=== PATIENT | male | born 1985 | race American Indian/Alaskan Native ===

== ENCOUNTER 2018-07-20 18:13 | Emergency (ER) | payer SELFPAY ==
--- NOTE | 2018-07-20 18:17 | Emergency Department Report ---
Stated Complaint: NECK PAIN Time Seen by Provider: 07/20/18 18:17 - HPI History of Present Illness: SIMPLE ABSCESS ON NECK MSE COMPLETED MSE screening note: Focused history and physical exam performed. Due to findings the following was ordered: ED Disposition for MSE Condition: Stable
[2018-07-20] MEDS ORDERED: XYLOCAINE 1% 20 mL INFILTRATI ONE (18:18)
[2018-07-20] MEDS ORDERED: IBUPROFEN PO ONE ×2 (18:19→20:16)
[2018-07-20 20:36] LABS: Basophils % (Auto) 0.3 % (0.0-1.8); Eosinophils # (Auto) 0.3 K/mm3 (0.0-0.4); Eosinophils % (Auto) 2.8 % (0.0-4.3); Hematocrit 45.5 % (35.5-45.6); Hemoglobin 15.1 gm/dl (11.8-15.2); Lymphocytes # (Auto) 2.8 K/mm3 (1.2-5.4); Lymphocytes % (Auto) 26.2 % (13.4-35.0); Mean Corpuscular HGB Conc 33 % (32-34); Mean Corpuscular Volume 84 fl (84-94); Monocytes # (Auto) 0.8 K/mm3 (0.0-0.8); Monocytes % (Auto) 7.2 % (0.0-7.3); Platelet Count 191 K/mm3 (140-440); Red Blood Count 5.41 M/mm3 (3.65-5.03); Red Cell Distribution Width 15.4 % (13.2-15.2)
[2018-07-20 20:50] LABS: Alanine Aminotransferase 9 units/L (7-56); Albumin 4.1 g/dL (3.9-5); BUN/Creatinine Ratio 13; Blood Urea Nitrogen 15 mg/dL (9-20); Calcium 9.6 mg/dL (8.4-10.2); Hemolysis Index 7
[2018-07-20 21:28] VITALS: BP 131/86
--- NOTE | 2018-07-20 21:47 | Emergency Department Report ---
- General Chief complaint: Skin/Abscess/Foreign Body Stated complaint: NECK PAIN Time Seen by Provider: 07/20/18 18:17 Source: patient Mode of arrival: Ambulatory Limitations: No Limitations - History of Present Illness Initial comments: 32 year old -[place] male presents to the emergency room for complaint of abscess under left chin/jaw 2 days. Patient denies any fever or chills. Patient does report that it is painful denies any discharge or drainage from the abscess. Patient has no past medical history currently takes no medications on a daily basis has no known drug allergies. MD complaint: abscess/boil -: days(s) (3) Location: face Severity scale (0 -10): 10 (F jaw) Quality: constant Consistency: constant Improves with: none Worsens with: palpation Context: none Associated symptoms: denies other symptoms - Related Data Previous Rx's Medication Instructions Recorded Last Taken Type Cephalexin [Keflex] 500 mg PO BID #20 capsule 07/20/18 Unknown Rx Naproxen [Naprosyn] 500 mg PO BID #14 tablet 07/20/18 Unknown Rx Allergies Allergy/AdvReac Type Severity Reaction Status Date / Time No Known Allergies Allergy Verified 07/20/18 18:17 Abscess Boil HPI - HPI Chief Complaint: Skin/Abscess/Foreign Body Stated Complaint: NECK PAIN Time Seen by Provider: 07/20/18 18:17 Home Medications: Previous Rx's Medication Instructions Recorded Last Taken Type Cephalexin [Keflex] 500 mg PO BID #20 capsule 07/20/18 Unknown Rx Naproxen [Naprosyn] 500 mg PO BID #14 tablet 07/20/18 Unknown Rx Allergies/Adverse Reactions: Allergies Allergy/AdvReac Type Severity Reaction Status Date / Time No Known Allergies Allergy Verified 07/20/18 18:17 ED Review of Systems ROS: Stated complaint: NECK PAIN Other details as noted in HPI Comment: All other systems reviewed and negative Constitutional: denies: chills, fever ED Past Medical Hx - Past Medical History Previous Medical History?: No - Surgical History Past Surgical History?: No - Social History Smoking Status: Current Every Day Smoker Substance Use Type: Alcohol - Medications Home Medications: Home Medications Medication Instructions Recorded Confirmed Last Taken Type Cephalexin [Keflex] 500 mg PO BID #20 capsule 07/20/18 Unknown Rx Naproxen [Naprosyn] 500 mg PO BID #14 tablet 07/20/18 Unknown Rx ED Physical Exam - General Limitations: No Limitations ED Course Vital Signs 07/20/18 18:18 Temperature 98.2 F Pulse Rate 83 Respiratory 18 Rate Blood Pressure 131/86 O2 Sat by Pulse 97 Oximetry - I & D Left Neck Type of Procedure: Simple Blade Size: 11 I & D Procedure: betadine prep, sterile drapes applied, sterile dressing applied, gauze wick placed Progress: Patient tolerated procedure well ED Medical Decision Making - Lab Data Result diagrams: 07/20/18 20:24 07/20/18 20:24 - Radiology Data Radiology results: report reviewed Patient: ADRIENNE FISH JR MR#: [id number] : 1985 Acct:[id number] Age/Sex: 32 / M ADM Date: 07/20/18 Loc: ED Attending Dr: Ordering Physician: MARY CASTILLO Date of Service: 07/20/18 Procedure(s): CT neck w con Accession Number(s): [id number] cc: MARY CASTILLO PROCEDURE: CT neck with contrast. TECHNIQUE: Computerized axial tomography of the soft tissue neck was performed following the IV injection of iodinated nonionic contrast. CT DOSE LENGTH PRODUCT: 499.6 mGycm HISTORY: Abscess on left neck. COMPARISONS: None. TECHNICAL QUALITY: Satisfactory. FINDINGS: The nasopharynx, oropharynx and hypopharynx appear normal. The larynx appears normal. There is a large nodule in the left lobe of the thyroid. The parotid and submandibular salivary glands appear normal. The vascular structures enhance normally. There is a low-attenuation ovoid mass within the subcutaneous fat of the left side of the neck. This is located at the level of the hyoid bone. The mass has some internal septations but is predominantly low in attenuation. It measures 3.7 cm x 2.1 cm x 4.3 cm. It is consistent with a subcutaneous abscess. A necrotic neoplasm could have a similar appearance however. There are numerous small bilateral cervical lymph nodes. The bones appear intact. The mastoid air cells are clear. There are small mucous retention cysts in the left maxillary sinus. IMPRESSION: Large left-sided subcutaneous neck mass as described. Large nodule in the left lobe of the thyroid gland. This document is electronically signed by Jareth Jackson MD., July 20 2018 10:00:04 PM ET Transcribed By: MRM Dictated By: JARETH JACKSON MD Electronically Authenticated By: JARETH JACKSON MD Signed Date/Time: 07/20/182201 DD/ 24 TD/TT: 07/20/182124 Critical care attestation.: If time is entered above; I have spent that time in minutes in the direct care of this critically ill patient, excluding procedure time. ED Disposition Clinical Impression: Cutaneous abscess of neck, Thyroid nodule Disposition: DC-01 TO HOME OR SELFCARE Is pt being admited?: No Does the pt Need Aspirin: No Condition: Stable Instructions: Thyroid Nodules (ED), Abscess Incision and Drainage (ED), Abscess (ED) Additional Instructions: Complete antibiotics as prescribed. Pain medication as needed. Follow up in 2 days to have packing removed from neck. Prescriptions: Cephalexin [Keflex] 500 mg PO BID #20 capsule Naproxen [Naprosyn] 500 mg PO BID #14 tablet Referrals: DANIELLE HAYES MD [Primary Care Provider] - 3-5 Days Forms: Work/School Release Form(ED)
--- NOTE | 2018-07-20 22:02 | Cat Scan Report ---
PROCEDURE: CT neck with contrast. TECHNIQUE: Computerized axial tomography of the soft tissue neck was performed following the IV inje ction of iodinated nonionic contrast. CT DOSE LENGTH PRODUCT: 499.6 mGycm HISTORY: Abscess on left neck. COMPARISONS: None. TECHNICAL QUALITY: Satisfactory. FINDINGS: The nasopharynx, oropharynx and hypopharynx appear normal. The larynx appears normal. There is a larg e nodule in the left lobe of the thyroid. The parotid and submandibular salivary glands appear normal . The vascular structures enhance normally. There is a low-attenuation ovoid mass within the subcutan eous fat of the left side of the neck. This is located at the level of the hyoid bone. The mass has s ome internal septations but is predominantly low in attenuation. It measures 3.7 cm x 2.1 cm x 4.3 cm . It is consistent with a subcutaneous abscess. A necrotic neoplasm could have a similar appearance h owever. There are numerous small bilateral cervical lymph nodes. The bones appear intact. The mastoid air cells are clear. There are small mucous retention cysts in the left maxillary sinus. IMPRESSION: Large left-sided subcutaneous neck mass as described. Large nodule in the left lobe of t he thyroid gland. This document is electronically signed by Jareth Starkey MD., July 20 2018 10:00:04 PM ET
== END 2018-07-20 23:10 | disposition home or self-care (01) ==
LOC: ED 18:13
DX: L02.11 Cutaneous abscess of neck (principal); E04.1 Nontoxic single thyroid nodule; F17.200 Nicotine dependence, unspecified, uncomplicated
CPT/HCPCS: 10060; 36415; 70491; 80053; 85025; 99284; Q9967

== ENCOUNTER 2019-04-23 03:17 | Emergency (ER) | payer BC ==
[2019-04-23 03:24] VITALS: BP 132/85
[2019-04-23 04:44] LABS: Bilirubin,Urine NEG (Negative); Blood,Urine NEG (Negative); Color,Urine Yellow (Yellow); Mucus,Urine FEW /HPF; Protein,Urine <15 mg/dL mg/dL (Negative); Urobilinogen,Urine < 2.0 mg/dL (<2.0)
[2019-04-23 04:51] LABS: WBC,Urine > 182.0 /HPF (0.0-6.0)
[2019-04-23] MEDS ORDERED: LIDOCAINE-MPF (1%) 10 MG/1 ML VIAL 5 ML INFILTRATI ONE (06:27)
--- NOTE | 2019-04-23 07:07 | Emergency Department Report ---
ED Male HPI - General Chief complaint: Urogenital-Male Stated complaint: PAIN IN GROIN AREA Time Seen by Provider: 04/23/19 06:25 Source: patient Mode of arrival: Ambulatory Limitations: No Limitations - Related Data Previous Rx's Medication Instructions Recorded Last Taken Type Cephalexin [Keflex] 500 mg PO BID #20 capsule 07/20/18 Unknown Rx Naproxen [Naprosyn] 500 mg PO BID #14 tablet 07/20/18 Unknown Rx Azithromycin [Zithromax TAB] 1,000 mg PO QDAY #4 tablet 04/23/19 Unknown Rx Doxycycline Hyclate [Doxycycline 100 mg PO Q12HR #14 tab 04/23/19 Unknown Rx Hyclate TAB] Allergies Allergy/AdvReac Type Severity Reaction Status Date / Time No Known Allergies Allergy Verified 07/20/18 18:17 ED Review of Systems ROS: Stated complaint: PAIN IN GROIN AREA Other details as noted in HPI ED Past Medical Hx - Past Medical History Previous Medical History?: No - Surgical History Past Surgical History?: No - Social History Smoking Status: Current Every Day Smoker Substance Use Type: Alcohol, Marijuana - Medications Home Medications: Home Medications Medication Instructions Recorded Confirmed Last Taken Type Cephalexin [Keflex] 500 mg PO BID #20 capsule 07/20/18 Unknown Rx Naproxen [Naprosyn] 500 mg PO BID #14 tablet 07/20/18 Unknown Rx Azithromycin [Zithromax TAB] 1,000 mg PO QDAY #4 tablet 04/23/19 Unknown Rx Doxycycline Hyclate [Doxycycline 100 mg PO Q12HR #14 tab 04/23/19 Unknown Rx Hyclate TAB] ED Physical Exam - General Limitations: No Limitations ED Course Vital Signs 04/23/19 03:18 Temperature 97.4 F L Pulse Rate 91 H Respiratory 18 Rate Blood Pressure 132/85 [Right] O2 Sat by Pulse 98 Oximetry ED Medical Decision Making - Lab Data Laboratory Tests 04/23/19 03:25 Urine Color Yellow Urine Turbidity Slightly-cloudy Urine pH 5.0 Ur Specific [place] 1.027 Urine Protein <15 mg/dl Urine Glucose (UA) Neg Urine Ketones Tr Urine Blood Neg Urine Nitrite Neg Urine Bilirubin Neg Urine Urobilinogen < 2.0 Ur Leukocyte Esterase Mod Urine WBC (Auto) > 182.0 H Urine RBC (Auto) 14.0 Urine Mucus Few Critical care attestation.: If time is entered above; I have spent that time in minutes in the direct care of this critically ill patient, excluding procedure time. ED Disposition Clinical Impression: Concern about STD in male without diagnosis Disposition: DC-01 TO HOME OR SELFCARE Is pt being admited?: No Does the pt Need Aspirin: No Condition: Stable Instructions: Sexually Transmitted Diseases (ED) Additional Instructions: Take antibiotics as prescribed. Follow-up with health department for full STD workup consisting of HIV and herpes hepatitis and syphilis. Prescriptions: Doxycycline Hyclate [Doxycycline Hyclate TAB] 100 mg PO Q12HR #14 tab Azithromycin [Zithromax TAB] 1,000 mg PO QDAY #4 tablet Referrals: PRIMARY CARE, [Primary Care Provider] - 3-5 Days
== END 2019-04-23 07:22 | disposition home or self-care (01) ==
LOC: ED 03:17
DX: R10.30 Lower abdominal pain, unspecified (principal); F17.200 Nicotine dependence, unspecified, uncomplicated; F10.10 Alcohol abuse, uncomplicated; F12.10 Cannabis abuse, uncomplicated; Z79.899 Other long term (current) drug therapy
CPT/HCPCS: 81001; 96372; 99283; J0696

== ENCOUNTER 2020-02-24 21:08 | Emergency (ER) | payer SELFPAY ==
[2020-02-24 22:57] VITALS: BP 124/91
--- NOTE | 2020-02-24 23:48 | XRay Report ---
LEFT FOOT 3 VIEWS LEFT ANKLE 3 VIEWS INDICATION: pain and swelling. COMPARISON: No relevant prior imaging study available. FINDINGS: Left foot: No acute, displaced fracture or dislocation is seen. No soft tissue foreign bodies. There is mild dorsal soft tissue swelling in the forefoot. Left ankle: There is a minimally displaced transverse fracture through the distal fibula at the level of the ankle mortise. There are several ossific densities adjacent to the medial malleolus which may be fracture fragments/heterotopic ossification. Some of these may be acute. There is diffuse soft ti ssue swelling. IMPRESSION: 1. Minimally displaced transverse distal left fibular fracture. 2. There are several ossific/calcific densities at the medial ankle. These may be avulsion fracture f ragments of uncertain chronicity. Some of these appear well-corticated and are likely chronic. Hetero topic ossification can also have this appearance. Signer Name: Azeem Perez MD Signed: 02/24/2020 11:44 PM Workstation Name: [id number]
--- NOTE | 2020-02-25 00:03 | Emergency Department Report ---
ED Lower Extremity HPI - General Chief Complaint: Extremity Injury, Lower Stated Complaint: LEFT FOOT INJURY Time Seen by Provider: 02/24/20 23:26 Source: patient Mode of arrival: Ambulatory Limitations: No Limitations - History of Present Illness Initial Comments: The patient was evaluated in the emergency department for symptoms described in the history of present illness. He/she was evaluated in the context of the global COVID-19 pandemic, which necessitated consideration that the patient might be at risk for infection with the virus that causes COVID-19. Institutional protocols and algorithms that pertain to the evaluation of patients at risk for COVID-19 are in a state of rapid change based on information released by regulatory bodies including the CDC and federal and state organizations. These policies and algorithms were followed during the patient's care in the emergency department. Please note that these policies, procedures and recommendations changed on a rapid basis. 24-year-old -[place] male presents to the emergency room states that he was running 2 days ago and twisted his left ankle. Patient presents with s welling redness to his left foot and ankle. MD Complaint: ankle injury Injury: Ankle: Left, Foot: Left Type of Injury: inversion Place: street/outdoors Severity: severe Improves With: immobilization Worsens With: weight bearing, movement, palpation Context: running Associated Symptoms: swelling, unable to bear weight - Related Data Previous Rx's Medication Instructions Recorded Last Taken Type Cephalexin [Keflex] 500 mg PO BID #20 capsule 07/20/18 Unknown Rx Azithromycin [Zithromax TAB] 1,000 mg PO QDAY #4 tablet 04/23/19 Unknown Rx Doxycycline Hyclate [Doxycycline 100 mg PO Q12HR #14 tab 04/23/19 Unknown Rx Hyclate TAB] HYDROcodone/APAP 7.5-325 [[place] 1 each PO Q8HR PRN #15 tablet 02/25/20 Unknown Rx 7.5/325] Naproxen [Naprosyn] 500 mg PO BID #14 tablet 02/25/20 Unknown Rx cephALEXin [Keflex] 500 mg PO Q12HR 7 Days #14 cap 02/25/20 Unknown Rx Allergies Allergy/AdvReac Type Severity Reaction Status Date / Time No Known Allergies Allergy Verified 07/20/18 18:17 ED Review of Systems ROS: Stated complaint: LEFT FOOT INJURY Other details as noted in HPI Comment: All other systems reviewed and negative ED Past Medical Hx - Past Medical History Previous Medical History?: No - Surgical History Past Surgical History?: No - Social History Smoking Status: Current Every Day Smoker Substance Use Type: Marijuana - Medications Home Medications: Home Medications Medication Instructions Recorded Confirmed Last Taken Type Cephalexin [Keflex] 500 mg PO BID #20 capsule 07/20/18 Unknown Rx Azithromycin [Zithromax TAB] 1,000 mg PO QDAY #4 tablet 04/23/19 Unknown Rx Doxycycline Hyclate [Doxycycline 100 mg PO Q12HR #14 tab 04/23/19 Unknown Rx Hyclate TAB] HYDROcodone/APAP 7.5-325 [[place] 1 each PO Q8HR PRN #15 tablet 02/25/20 Unknown Rx 7.5/325] Naproxen [Naprosyn] 500 mg PO BID #14 tablet 02/25/20 Unknown Rx cephALEXin [Keflex] 500 mg PO Q12HR 7 Days #14 cap 02/25/20 Unknown Rx ED Physical Exam - General Limitations: No Limitations General appearance: alert, in no apparent distress - Head Head exam: Present: atraumatic, normocephalic - Eye Eye exam: Present: normal appearance - ENT ENT exam: Present: mucous membranes moist - Rectal Rectal exam: Present: deferred - Expanded Lower Extremity Exam Left Hip exam: Present: normal inspection Upper Leg exam: Present: normal inspection, full ROM Knee exam: Present: normal inspection, full ROM Lower Leg exam: Present: normal inspection Ankle exam: Present: tenderness, swelling, abrasion, ecchymosis, erythema Foot/Toe exam: Present: tenderness, swelling, abrasion, ecchymosis, erythema Neuro vascular tendon exam: Present: no vascular compromise - Back Exam Back exam: Present: normal inspection - Neurological Exam Neurological exam: Present: alert, oriented X3 - Psychiatric Psychiatric exam: Present: normal affect, normal mood - Skin Skin exam: Present: warm, dry, intact, normal color. Absent: rash ED Course Vital Signs 02/24/20 22:56 Temperature 98 F Pulse Rate 93 H Respiratory 18 Rate Blood Pressure 124/91 [Left] O2 Sat by Pulse 98 Oximetry ED Lower Extremity MDM - Radiology Data Radiology results: report reviewed Patient: ADRIENNE FISH JR MR#: [id number] : 1985 Acct:[id number] Age/Sex: 34 / M ADM Date: 02/24/20 Loc: ED Attending Dr: Ordering Physician: EDUARDO GORDON MD Date of Service: 02/24/20 Procedure(s): XR foot 3+V LT Accession Number(s): [id number] cc: EDUARDO GORDON MD Fluoro Time In Minutes: LEFT FOOT 3 VIEWS LEFT ANKLE 3 VIEWS INDICATION: pain and swelling. COMPARISON: No relevant prior imaging study available. FINDINGS: Left foot: No acute, displaced fracture or dislocation is seen. No soft tissue foreign bodies. There is mild dorsal soft tissue swelling in the forefoot. Left ankle: There is a minimally displaced transverse fracture through the distal fibula at the level of the ankle mortise. There are several ossific densities adjacent to the medial malleolus which may be fracture fragments/heterotopic ossification. Some of these may be acute. There is diffuse soft tissue swelling. IMPRESSION: 1. Minimally displaced transverse distal left fibular fracture. 2. There are several ossific/calcific densities at the medial ankle. These may be avulsion fracture fragments of uncertain chronicity. Some of these appear well-corticated and are likely chronic. Heterotopic ossification can also have this appearance. Signer Name: Azeem Perez MD Signed: 02/24/2020 11:44 PM Workstation Name: [id number] Transcribed By: SW Dictated By: Azeem Perez MD Electronically Authenticated By: Azeem Perez MD Signed Date/Time: 02/24/20 2344 - Medical Decision Making 24-year-old -[place] male presents to the emergency room states that he was running 2 days ago and twisted his left ankle. Patient presents with swelling redness to his left foot and ankle. X-ray shows a left distal fibular fracture. [place] 7.5 mg given for pain management while in ER. Patient be discharged home on naproxen, [place] and Keflex as patient has a small open abrasion to his ankle and foot. Critical care attestation.: If time is entered above; I have spent that time in minutes in the direct care of this critically ill patient, excluding procedure time. ED Disposition Clinical Impression: Fracture of distal end of fibula Qualifiers: Encounter type: initial encounter Fracture type: closed Laterality: left Disposition: DC-01 TO HOME OR SELFCARE Is pt being admited?: No Does the pt Need Aspirin: No Condition: Stable Instructions: Nondisplaced Fibular Ankle Fracture Treated With Immobilization, Adult Additional Instructions: Complete antibiotics as prescribed. Take pain medication as needed. Very important for you to not bear weight and to follow-up with an patient transition specialist I have listed several below for your convenience. Prescriptions: cephALEXin [Keflex] 500 mg PO Q12HR 7 Days #14 cap Naproxen [Naprosyn] 500 mg PO BID #14 tablet HYDROcodone/APAP 7.5-325 [[place] 7.5/325] 1 each PO Q8HR PRN #15 tablet PRN Reason: Pain Referrals: [facility] MD JOCELYN [Primary Care Provider] - 3-5 Days SE LORD MD [Staff Physician] - 3-5 Days JYOTSNA JJ MD [Staff Physician] - 3-5 Days
[2020-02-25] MEDS ORDERED: HYDROcodone/ACETAMINOPHEN 7.5-325MG TAB PO ONE (00:16)
== END 2020-02-25 01:23 | disposition home or self-care (01) ==
LOC: ED 21:08
DX: S82.832A Other fracture of upper and lower end of left fibula, initial encounter for closed fracture (principal); F17.200 Nicotine dependence, unspecified, uncomplicated; F12.10 Cannabis abuse, uncomplicated; Z79.899 Other long term (current) drug therapy; X37.1XXA Tornado, initial encounter; Y93.89 Activity, other specified; Y92.89 Other specified places as the place of occurrence of the external cause; Y99.8 Other external cause status